=== PATIENT | male | born 1995 | race African-American/Black ===

== ENCOUNTER 2017-04-13 01:16 | Emergency (ER) | payer OTHER ==
[2017-04-13 01:28] VITALS: BP 118/53
--- NOTE | 2017-04-13 03:29 | ED ---
Lower Extremity - HPI Summary HPI Summary: 21M presents with left leg today. He twisted his ankle while walking down the stairs. He inverted his ankle. He denies any numbness or tingling. He denies any previous injury to the area. He denies any knee pain. He was able to ambulate afterwards with pain. He states hurts on lateral aspect of ankle. He did not take anything for pain. pain is 6/10. there is edema to lateral aspect of ankle. - History of Current Complaint Chief Complaint: EDExtremityLower Stated Complaint: LEFT ANKLE INJURY Time Seen by Provider: 04/13/17 03:14 Pain Intensity: 6 - Allergies/Home Medications Allergies/Adverse Reactions: Allergies Allergy/AdvReac Type Severity Reaction Status Date / Time No Known Allergies Allergy Verified 04/13/17 01:28 PMH/Surg Hx/FS Hx/Imm Hx Endocrine/Hematology History: Denies: Hx Anticoagulant Therapy Cardiovascular History: Denies: Hx Hypertension Infectious Disease History: No Infectious Disease History: Denies: Traveled Outside the [place] in Last 30 Days - Family History Known Family History: Negative: Hypertension - Social History Alcohol Use: Occasionally Substance Use Type: Reports: None Smoking Status (MU): Never Smoked Tobacco Review of Systems Negative: Fever Negative: Chest Pain Negative: Shortness Of Breath Positive: Myalgia - left ankle pain All Other Systems Reviewed And Are Negative: Yes Physical Exam Triage Information Reviewed: Yes Vital Signs On Initial Exam: Initial Vitals Temp Pulse Resp BP Pulse Ox 99.4 F 105 16 118/53 99 04/13/17 01:25 04/13/17 01:25 04/13/17 01:25 04/13/17 01:25 04/13/17 01:25 Vital Signs Reviewed: Yes Appearance: Positive: Well-Appearing Skin: Positive: Warm, Dry Head/Face: Positive: Normal Head/Face Inspection Eyes: Positive: Normal, Conjunctiva Clear Respiratory/Lung Sounds: Positive: Clear to Auscultation, Breath Sounds Present Cardiovascular: Positive: Normal, RRR Musculoskeletal: Positive: Limited @ - left ankle, Edema Left - lateral ascpect of ankle, Other - good pulses, capillary refill<2 secs, sensation grossly intact , tender over lateral aspect of left ankle Neurological: Positive: Normal Psychiatric: Positive: Normal - Anu Coma Scale Coma Scale Total: 15 Diagnostics - Vital Signs Vital Signs Temp Pulse Resp BP Pulse Ox 04/13/17 01:25 99.4 F 105 16 118/53 99 - Laboratory Lab Statement: Any lab studies that have been ordered have been reviewed, and results considered in the medical decision making process. - Radiology ankle Xray Interpretation: No Acute Changes - swelling, no fracture Radiology Interpretation Completed By: ED Physician Lower Extremity Course/Dx - Course Course Of Treatment: 21M presents with left leg today. He twisted his ankle while walking down the stairs. He inverted his ankle. He denies any numbness or tingling. He denies any previous injury to the area. He denies any knee pain. He was able to ambulate afterwards with pain. He states hurts on lateral aspect of ankle. He did not take anything for pain. pain is 6/10. there is edema to lateral aspect of ankle. on exam neurovascular intact. tenderness over lateral aspect of ankle. I read xray as normal. told that final report will be available in morning. will treat as sprain with RICE. gave bianca and gel splint and crutches. patient understand and agrees with plan. - Diagnoses Differential Diagnosis/HQI/PQRI: Positive: Fracture (Closed), Sprain, Strain Provider Diagnoses: Left ankle injury Discharge - Discharge Plan Condition: Good Disposition: HOME Patient Education Materials: Ankle Sprain (ED) Referrals: Non Staff,Doctor [Primary Care Provider] - Additional Instructions: Stay off ankle as much as possible Ice, elevate, keep in BIANCA Ibuprofen every 6 hours for pain Follow up with primary if no improvement Return to ED if develop or any new or worsening symptoms
[2017-04-13] MEDS ORDERED: Ibuprofen TAB* 600 MG PO ONE (03:46)
--- NOTE | 2017-04-13 10:12 | RAD ---
INDICATION: Left ankle pain after rolling injury down the stairs COMPARISON: None. TECHNIQUE: 3 views of the left ankle were obtained. FINDINGS: There is asymmetric soft tissue swelling overlying the fibular malleolus. The well corticated bones exhibit normal alignment. Joint spaces appear maintained. No fracture is seen. IMPRESSION: SOFT TISSUE SWELLING OVERLYING THE FIBULAR MALLEOLUS WITHOUT RADIOGRAPHICALLY APPARENT FRACTURE OR DISLOCATION. If the patient's symptoms persist, follow-up imaging is recommended.
== END 2017-04-13 04:00 | disposition home or self-care (01) ==
LOC: EDBD → ED 01:16
DX: S99.912A Unspecified injury of left ankle, initial encounter (principal); X50.1XXA Overexertion from prolonged static or awkward postures, initial encounter; Y93.01 Activity, walking, marching and hiking; Y92.9 Unspecified place or not applicable
CPT/HCPCS: 99282